=== PATIENT | male | born 1960 | race African-American/Black ===

== ENCOUNTER 2021-08-21 08:43 | Emergency (ER) | payer MEDICAID ==
[~2021-08-21] VITALS: Ht 177.8 cm; Wt 86.4 kg
[2021-08-21 08:44] VITALS: BP 136/99
[2021-08-21 10:13] LABS: LYMPHOCYTES # (AUTO) 1.4 X10'3 (1.1-4.8); NEUTROPHILS # (AUTO) 2.6 X10'3 (1.8-7.7)
[2021-08-21 10:14] LABS: BASOPHILS # (AUTO) 0.2 X10'3 (0-0.2); BASOPHILS % (AUTO) 3.3 % (0-1); EOSINOPHILS % (AUTO) 0.9 % (0-6); HEMATOCRIT 38.1 % (42.0-52.0); HEMOGLOBIN 13.4 g/dl (14.0-17.9); LYMPHOCYTES % (AUTO) 26.7 % (21-51); MEAN CORPUSCULAR HEMOGLOBIN 32.3 PG (27.0-31.0); MEAN CORPUSCULAR VOLUME 92.1 FL (78-98); MEAN PLATELET VOLUME 7.7 FL (7.4-10.4); MONOCYTES % (AUTO) 19.3 % (2-12); NEUTROPHILS % (AUTO) 49.8 % (42-75); PLATELET COUNT 203 X10'3 (140-440); RED BLOOD COUNT 4.14 X10'6 (4.70-6.10); RED CELL DISTRIBUTION WIDTH 21.1 % (11.5-14.5); WHITE BLOOD COUNT 5.1 X10'3 (4.5-11.0)
[2021-08-21] MEDS ORDERED: normal saline 1000ml 1,000 ML IV ONE (10:20)
[2021-08-21] MEDS ORDERED: normal saline 1000ML IV soln IVB ONE (10:20)
[2021-08-21 10:28] LABS: ALANINE AMINOTRANSFERASE 132 U/L (12-78); ALBUMIN 3.2 G/DL (3.4-5.0); ALBUMIN/GLOBULIN RATIO 0.7 (1.1-1.5); ALKALINE PHOSPHATASE 83 IU/L (46-116); ANION GAP 11 (8-16); ASPARTATE AMINO TRANSFERASE 131 U/L (10-37); BILIRUBIN,TOTAL 0.8 MG/DL (0.1-1.0); BLOOD UREA NITROGEN 12 MG/DL (7-18); BUN/CREATININE RATIO 17.6 (5.4-32.0); CALCIUM 9.2 MG/DL (8.5-10.1); CHLORIDE 103 MMOL/L (99-107); CREATININE 0.68 MG/DL (0.60-1.10); GLUCOSE 115 MG/DL (70-104); POTASSIUM 3.4 MMOL/L (3.5-5.1); SODIUM 139 MMOL/L (135-145); TOTAL CARBON DIOXIDE 24.6 MMOL/L (24-32); TOTAL PROTEIN 7.5 G/DL (6.4-8.2); eGFR > 90 ML/MIN
[2021-08-21 10:46] LABS: ETHANOL 0.027 GM/DL (0.0-0.010); MAGNESIUM 1.7 MG/DL (1.5-2.4)
[2021-08-21] MEDS ORDERED: LORazepam 1 MG tablet PO PRN (11:05)
[2021-08-21] MEDS ORDERED: chlordiazePOXIDE 25mg capsule PO ONE (11:05)
[2021-08-21 11:18] LABS: LIPASE 185 U/L (73-393)
[2021-08-21] MEDS ORDERED: LORazepam 1 MG tablet PO ONE (12:00)
--- NOTE | 2021-08-21 12:00 | NUR ---
mri at bedside. pt refusing mri at this time, states he cannot lay flat. will medicate and re-asses.
[2021-08-21] MEDS ORDERED: metoprolol tartrate 50mg tablet PO ONE (12:05)
--- NOTE | 2021-08-21 13:31 | NUR ---
mri called, informed that pt is now ready to lay flat and can do mri.
[2021-08-21 13:53] LABS: CLARITY,URINE CLOUDY (Clear); COLOR,URINE YELLOW (Yellow); GLUCOSE, URINE NEGATIVE (Neg); KETONES,URINE TRACE mg/dl (Neg); LEUKOCYTE ESTERASE ,URINE NEGATIVE (Neg); NITRITES, URINE NEGATIVE (Neg); OCCULT BLOOD,URINE NEGATIVE (Neg); PROTEIN,URINE NEGATIVE (Neg)
[2021-08-21 13:55] LABS: UA COLLECTION TYPE CLN CATCH MIDSTREAM
[2021-08-21 13:56] LABS: AMORPHOUS PHOSPHATES 1+; BACTERIA,URINE NONE SEEN /HPF (Neg); HYALINE CASTS 0-3 /LPF (NEGATIVE); MUCUS STRANDS FEW /LPF (Neg); RBC,URINE 0-2 /HPF (0-2); SQUAMOUS EPITHELIAL CELL,UR NONE SEEN /LPF (FEW); WBC,URINE 0-4 /HPF (0-4)
[2021-08-21 14:05] LABS: URINE AMPHETAMINE SCREEN NEGATIVE (Neg); URINE BARBITUATE SCREEN NEGATIVE (Neg); URINE BENZODIAZEPINES SCREEN NEGATIVE (Neg); URINE CANNABINOID SCREEN NEGATIVE (Neg); URINE COCAINE SCREEN NEGATIVE (Neg); URINE METHADONE SCREEN NEGATIVE (Neg); URINE OPIATE SCREEN NEGATIVE (Neg); URINE PHENCYCLIDINE SCREEN NEGATIVE (Neg)
--- NOTE | 2021-08-21 14:31 | NUR ---
pt to mri via wheelchair
== END 2021-08-21 15:50 | disposition home or self-care (01) ==
LOC: ER 08:44
DX: M54.50 Low back pain, unspecified (principal); Z20.822 Contact with and (suspected) exposure to COVID-19; G89.29 Other chronic pain; F10.129 Alcohol abuse with intoxication, unspecified; R05.9 Cough, unspecified; R06.02 Shortness of breath; R53.1 Weakness; Z59.00 Homelessness unspecified; Y90.0 Blood alcohol level of less than 20 mg/100 ml
CPT/HCPCS: 36415; 71045; 72148; 80053; 80305; 80320; 81001; 83690; 83735; 83880; 84443; 84484; 85025; 87635; 93005; 96360; 96361; 99285; C9803; J7030